=== PATIENT | female | born 1975 | race Hispanic/Latino ===

== ENCOUNTER 2020-09-30 13:14 | Observation (INO) | payer OTHER, SELFPAY ==
[2020-09-30] MEDS ORDERED: Ondansetron PF 4 MG/2 ML Vial IVP PRN (14:50)
[2020-09-30] MEDS ORDERED: Dextrose 5% in Water 1,000 ML IV PRN (14:50)
[2020-09-30] MEDS ORDERED: Morphine 2 MG/ML VIAL SLOW IVP PRN (14:50)
[2020-09-30] MEDS ORDERED: Dextrose 50% Abboject 50 ML SYRINGE SLOW IVP PRN (14:50)
[2020-09-30] MEDS ORDERED: traMADol HCl 50 MG TAB PO PRN (14:58)
[2020-09-30] MEDS ORDERED: Acetaminophen 500 MG TAB PO SCH (15:00)
[2020-09-30 17:47] VITALS: BMI 29.3
[2020-09-30] MEDS: Acetaminophen 500 MG TAB PO SCH ×2 (18:03→23:42)
[2020-09-30] MEDS: Ibuprofen 200 MG TAB PO SCH (18:04)
[2020-09-30] MEDS: traMADol HCl 50 MG TAB PO SCH ×2 (18:04→23:42)
[2020-09-30] MEDS: Famotidine 20 MG TAB PO SCH (19:53)
[2020-09-30] MEDS ORDERED: Ibuprofen 200 MG TAB PO SCH (22:00)
[2020-09-30 23:15] LABS: SARS-CoV-2 PCR by NAA Not Detected (NotDetected)
[2020-09-30] MEDS ORDERED: Lactated Ringer's 1,000 ML IV SCH (23:59)
[2020-10-01] MEDS: Ibuprofen 200 MG TAB PO SCH ×3 (03:10→17:41)
[2020-10-01] MEDS: Acetaminophen 500 MG TAB PO SCH ×3 (05:19→17:40)
[2020-10-01 06:30] LABS: #Basophils 0.1 thou/uL (0.0-0.2); #Lymphocytes 2.4 thou/uL (1.20-3.40); #Monocytes 0.7 thou/uL (0.11-0.59); #Neutrophils 6.7 thou/uL (1.40-6.50); %Basophils 0.5 % (0.0-1.0); %Eosinophils 0.2 % (0.0-10.0); %Lymphocytes 24.2 % (21.0-51.0); %Monocytes 7.1 % (0.0-10.0); Hemoglobin 13.9 g/dL (12.0-16.0); Mean Corpuscular Hemoglobin 29.8 pg (27.0-31.0); Mean Corpuscular Volume 90.4 fL (78.0-98.0); Mean Platelet Volume 8.6 fL (7.4-10.4); Platelet Count 253 thou/uL (130-400); RBC Distribution Width 12.4 % (11.5-14.5); Red Blood Cell (RBC) Count 4.66 mill/uL (4.20-5.40); White Blood Cell (WBC) Count 9.8 thou/uL (4.8-10.8)
[2020-10-01 06:53] LABS: Anion Gap 10 mmol/L (10-20); BUN (Urea Nitrogen) 12 mg/dL (7.0-18.7); Calc. Creatinine Clearance 143 mL/min (70-130); Calcium 8.4 mg/dL (7.8-10.44); Carbon Dioxide 26 mmol/L (22-29); Chloride 103 mmol/L (98-107); Glucose 108 mg/dL (70-105); Phosphorus 3.1 mg/dL (2.3-4.7); Potassium 3.7 mmol/L (3.5-5.1); Sodium 135 mmol/L (136-145)
[2020-10-01] MEDS: traMADol HCl 50 MG TAB PO SCH ×2 (08:23→15:57)
[2020-10-01] MEDS: Famotidine 20 MG TAB PO SCH (08:23)
[2020-10-01] MEDS ORDERED: Ketorolac Tromethamine 30 MG/ML VIAL ONE (11:19)
[2020-10-01] MEDS ORDERED: Lidocaine 1% PF 5 ML VIAL ONE (11:19)
[2020-10-01] MEDS ORDERED: Dexamethasone 20 MG/5 ML VIAL ONE (11:19)
[2020-10-01] MEDS ORDERED: PROPOFOL 200 MG/20 ML VIAL ONE (11:19)
[2020-10-01] MEDS ORDERED: Ondansetron PF 4 MG/2 ML Vial ONE (11:19)
[2020-10-01] MEDS ORDERED: Fentanyl 100 MCG/2 ML VIAL ONE ×3 (11:32→14:16)
[2020-10-01] MEDS ORDERED: Lidocaine 2% Jelly 5 ML TUBE ONE (11:33)
[2020-10-01] MEDS ORDERED: Bupivacaine PF 0.5% 30 ML VIAL ONE (11:51)
[2020-10-01] MEDS ORDERED: EPINEPHrine 1 MG/ML AMP ONE (11:52)
[2020-10-01] MEDS ORDERED: Neomycin-Polymyxin 1 ML AMP ONE (13:03)
[2020-10-01] MEDS ORDERED: Promethazine HCl 25 MG/ML VIAL IM PRN (13:28)
[2020-10-01] MEDS ORDERED: Ondansetron HCl/PF 4 MG/2 ML Vial IVP PRN (13:28)
[2020-10-01] MEDS ORDERED: Promethazine HCl 25 MG/ML VIAL SLOW IVP PRN (13:28)
[2020-10-01 15:48] VITALS: TEMP 98.8
[2020-10-01 17:14] VITALS: BP 132/84
[2020-10-01] MEDS ORDERED: Ketorolac Tromethamine 30 MG/ML VIAL IVP SCH (18:00)
== END 2020-10-01 19:35 | disposition home or self-care (01) ==
LOC: ERS 13:14 → SURG A 17:01
PROVIDERS: ADMIT Specialist; ATTEND Specialist
PROC: 0QSK04Z Reposition Left Fibula with Internal Fixation Device, Open Approach (ICD-10-PCS; principal; 2020-10-01)
PROC: 0QSH04Z Reposition Left Tibia with Internal Fixation Device, Open Approach (ICD-10-PCS; 2020-10-01)
PROC: 0QSH04Z Reposition Left Tibia with Internal Fixation Device, Open Approach (ICD-10-PCS; 2020-10-01)
DX: S82.852A Displaced trimalleolar fracture of left lower leg, initial encounter for closed fracture (principal); G89.11 Acute pain due to trauma; E66.9 Obesity, unspecified; Z68.29 Body mass index [BMI] 29.0-29.9, adult; W01.0XXA Fall on same level from slipping, tripping and stumbling without subsequent striking against object, initial encounter; Z20.828 Contact with and (suspected) exposure to other viral communicable diseases
CPT/HCPCS: 36415; 71045; 76000; 80048; 83735; 84100; 85025; 86850; 86900; 86901; 87635; 93005; C1713; G0378; G0390; J0171; J0690; J1100; J1885; J2405; J2704; J3010; S0020; U0003; U0005